=== PATIENT | male | born 1995 | race Caucasian/White ===

== ENCOUNTER 2017-01-21 01:27 | Emergency (ER) | payer OTHER ==
[~2017-01-21] VITALS: Ht 177.8 cm; Wt 99.5 kg
[2017-01-21 01:32] VITALS: Ht 177.8 cm; Wt 99.5 kg
--- NOTE | 2017-01-21 02:45 | ERD ---
ER Documentation Chief Complaint Date/Time DATE: 01/21/17 TIME: 02:42 Chief Complaint headache x 3 days HPI 21-year-old male presents to emergency department for complaints of headache for the last 3 days, patient states that his concentration is different than normal. Patient denies any head injury. Patient denies any numbness or tingling. Patient denies any dizziness. Patient denies any fever or chills. Patient did not take any medications to help with headache. Patient describes the headache as throbbing pain, 6/10 scale, intermittent. ROS All systems reviewed and are negative except as per history of present illness. Medications Home Meds Reported Medications [none] Unknown Strength No Conflict Check 01/21/17 Allergies Allergies: Coded Allergies: No Known Drug Allergies (Verified Allergy, Mild, 09/27/15) PMhx/Soc History of Surgery: No Anesthesia Reaction: No Hx Neurological Disorder: No Hx Respiratory Disorders: No Hx Cardiac Disorders: Yes (HTN (2014)) Hx Psychiatric Problems: No Hx Miscellaneous Medical Probl: No Hx Alcohol Use: No Hx Substance Use: No Hx Tobacco Use: No Smoking Status: Never smoker FmHx Family History: No coronary disease, No diabetes, No other Physical Exam Vitals Vital Signs Date Time Temp Pulse Resp B/P Pulse Ox O2 Delivery O2 Flow Rate FiO2 01/21/17 01:32 97.8 79 20 135/83 97 Physical Exam GENERAL: The patient is well developed and appropriate for usual state of health, in no apparent distress. CHEST: Clear to auscultation bilaterally. There are no rales, wheezes or rhonchi. HEART: Regular rate and rhythm. No murmurs, clicks, rubs or gallops. No S3 or S4. ABDOMEN: Soft, nontender and nondistended. Good bowel sounds. No rebound or guarding. No gross peritonitis. No gross organomegaly or masses. No Sharma sign or McBurney point tenderness. BACK: No midline or flank tenderness. EXTREMITIES: Equal pulses bilaterally. There is no peripheral clubbing, cyanosis or edema. No focal swelling or erythema. Full range of motion. Grossly neurovascularly intact. NEURO: Alert and oriented. Cranial nerves 2-12 intact. Motor strength in all 4 extremities with 5/5 strength. Sensation grossly intact. Normal speech and gait. Negative Romberg sign. Negative pronator drift. SKIN: There is no apparent rash or petechia. The skin is warm and dry. HEMATOLOGIC AND LYMPHATIC: There is no evidence of excessive bruising or lymphedema. No gross cervical, axillary, or inguinal lymphadenopathy. Results 24 hrs PROCEDURE: CT Brain without contrast. CLINICAL INDICATION: Headache. TECHNIQUE: A CT of the brain was performed utilizing axial sections from the skull base through the vertex without contrast. Multiplanar re-formations were generated. Images were reviewed on a high-resolution PACS workstation. CTDIvol: 43.95 mGy. DLP: 720.23 mGy-cm. One or more of the following dose reduction techniques were used: - Automated exposure control. - Adjustment of the mA and/or kV according to patient size. - Use of iterative reconstruction technique. COMPARISON: None available FINDINGS: There is no cerebral volume loss. No hydrocephalus is seen. There is no mass effect. No acute intracranial hemorrhage is identified. There is no extra-axial collection. Rees-white matter differentiation is preserved. There are layering secretions in the left maxillary sinus. The visualized mastoid air cells are clear. The ossesous structures are unremarkable. There is scalp swelling along the high left parietal region. IMPRESSION: 1. No acute intracranial pathology. RPTAT: HTAR .Mayo Esposito MD, MD Date Time Electronically viewed and signed by .Mayo Esposito MD, MD on 01/21/2017 02:59 .R/ CC: GILL BUTLER [employer] MANAGER Procedures/MDM Medical Decision Making: Patient symptoms are consistent with migraine headache , possible tension headache. There is low suspicion for neurological emergencies at this time since patients neurologic exam is normal. Patient did not have any altered level consciousness, vomiting, changes in balance or memory and did not have any head injury. Patients CT scan of the head does not show any neurological emergencies at this time. Rx: Fioricet Dispostion: Home. Stable Departure Diagnosis: Primary Impression: Headache Headache type: unspecified Headache chronicity pattern: acute headache Intractability: not intractable Qualified Code: R51 - Acute nonintractable headache, unspecified headache type Condition: Stable Patient Instructions: Self-Care for Headaches GILL BUTLER NP Jan 21, 2017 02:45
--- NOTE | 2017-01-21 02:59 | RADRPT ---
PROCEDURE: CT Brain without contrast. CLINICAL INDICATION: Headache. TECHNIQUE: A CT of the brain was performed utilizing axial sections from the skull base through th e vertex without contrast. Multiplanar re-formations were generated. Images were reviewed on a high- resolution PACS workstation. CTDIvol: 43.95 mGy. DLP: 720.23 mGy-cm. One or more of the following dose reduction techniques were used: - Automated exposure control. - Adjustment of the mA and/or kV according to patient size. - Use of iterative reconstruction technique. COMPARISON: None available FINDINGS: There is no cerebral volume loss. No hydrocephalus is seen. There is no mass effect. No acute intrac ranial hemorrhage is identified. There is no extra-axial collection. Rees-white matter differentiati on is preserved. There are layering secretions in the left maxillary sinus. The visualized mastoid air cells are kristen r. The ossesous structures are unremarkable. There is scalp swelling along the high left parietal re gion. IMPRESSION: 1. No acute intracranial pathology. RPTAT: HTAR .Mayo Esposito MD, Date Time Electronically viewed and signed by .Mayo Esposito MD, on 01/21/2017 02:59 .R/
[2017-01-21] MEDS ORDERED: FIORICET PO (03:46)
== END 2017-01-21 04:01 | disposition home or self-care (01) ==
LOC: FTE 01:27
DX: R51 Headache (principal); I10 Essential (primary) hypertension
CPT/HCPCS: 70450; Z7502

== ENCOUNTER 2017-01-23 23:40 | Emergency (ER) | payer OTHER ==
[~2017-01-23] VITALS: Ht 172.7 cm; Wt 99.5 kg
[~2017-01-23 23:40] MED LIST: FIORICET PO
[2017-01-23 23:47] VITALS: Ht 172.7 cm; Wt 99.5 kg
--- NOTE | 2017-01-24 00:53 | ERD ---
ER Documentation Chief Complaint Date/Time DATE: 01/24/17 TIME: 00:50 Chief Complaint chest stabbing pain radiating to left arm and throat,hx HTN,on enalapril HPI Patient is a 21-year-old male who presents with gradual onset, constant, moderate, sharp substernal chest pain for 1-1/2 hours. He states that it is worse with deep inspiration. He denies radiation of pain. He denies shortness of breath, fever, vomiting, abdominal pain, back pain. He reports having a sore throat. He reports a mild cough. He states that he had a fever 2 days ago. He reports palpitations, which he describes as feeling like his heart is beating fast. He takes enalapril for hypertension. ROS All systems reviewed and are negative except as per history of present illness. Medications Home Meds Active Scripts Albuterol Sulfate* (Proair HFA*) 8.5 Gm Hfa.aer.ad, 2 PUFF INH Q4 for 7 Days, # 1 INHALER Prov:VANESSA AKINS MD 01/24/17 Ibuprofen* (Motrin*) 600 Mg Tab, 600 MG PO Q8H Y for PAIN, #20 TAB Prov:VANESSA AKINS MD 01/24/17 Acetamin/Butalbital/Caffeine* (Fioricet*) [id number] Tab, 1 TAB PO Q6H Y for SEVERE PAIN LEVEL 7-10, #30 TAB Prov:GILL BUTLER NP 01/21/17 Reported Medications Omeprazole* (Omeprazole*) 10 Mg Capsule.dr, 10 MG PO DAILY, #30 CAP 01/24/17 Acetaminophen* (Acetaminophen*) 500 MG Extra Strength Tablet, 500 MG PO Q4H Y for PAIN AND OR ELEVATED TEMP, TAB 01/24/17 Discontinued Reported Medications [none] Unknown Strength No Conflict Check 01/21/17 Allergies Allergies: Coded Allergies: No Known Drug Allergies (Unverified Allergy, Unknown, 01/24/17) PMhx/Soc Past medical history: Hypertension Past surgical history: None Social history: Drinks alcohol, denies tobacco or illicit drugs. Last alcohol was 2 weeks ago. History of Surgery: No Anesthesia Reaction: No Hx Neurological Disorder: No Hx Respiratory Disorders: No Hx Cardiac Disorders: Yes (HTN,tachycardia) Hx Psychiatric Problems: No Hx Miscellaneous Medical Probl: No Hx Alcohol Use: No Hx Substance Use: No Hx Tobacco Use: No (quit 4 months ago) Smoking Status: Former smoker FmHx Family History: No coronary disease, No diabetes Physical Exam Vitals Vital Signs Date Time Temp Pulse Resp B/P Pulse Ox O2 Delivery O2 Flow Rate FiO2 01/24/17 02:49 98.0 62 19 111/54 98 Room Air 01/24/17 01:00 65 142/74 01/24/17 00:49 67 19 149/69 100 Room Air 01/23/17 23:47 100.1 98 18 186/97 98 Physical Exam Const: Alert, no acute distress Head: Atraumatic Eyes: Normal Conjunctiva, no pallor, no icterus ENT: Normal External Ears, Nose and Mouth. His membranes moist, clear oropharynx, no erythema or exudate. Neck: Full range of motion. No JVD. Resp: Clear to auscultation bilaterally, no wheezes, no rales Cardio: Regular rate and rhythm, no murmurs. 2+ radial pulses without delay bilaterally. Abd: Soft, non tender, non distended. No rebound or guarding s Skin: No petechiae or rashes Back: No midline or flank tenderness Ext: No cyanosis, or edema Neur: Awake and alert, cranial nerves II through XII intact bilaterally, moves and feels 4 extremities appropriately. Psych: Normal Mood and Affect Results 24 hrs Current Medications Medications (Trade) Dose Ordered Sig/[place] PRN Reason Start Time Stop Time Status Last Admin Dose Admin Metoprolol Tartrate (Lopressor) 25 mg ONCE ONCE PO 01/24/17 01:00 01/24/17 01:15 DC Procedures/MDM EKG read by me: Time 0002, rate 90 Rhythm: Normal sinus [place]: Normal Intervals: Normal ST-T waves: no ischemic changes Ectopy: No Q-waves: No Impression: No evidence of ischemia or arrhythmia MDM: Patient is a 21-year-old male who presents with substernal chest discomfort that is worse with deep inspiration. He has a normal EKG in the setting of active pain and chest x-ray. He has no PE risk factors. His symptoms are not suggestive of coronary ischemia or aortic dissection. The patient presented with significantly elevated blood pressure, and has a history of hypertension. His blood pressure spontaneously normalized while in the ER. The patient has a low-grade fever and sore throat, which is suggestive of a viral illness. I suspect that his pain is due to bronchitis. I will prescribe him Motrin for pain and an albuterol inhaler. I have advised him on strict return precautions for any worsening symptoms, and need for close PMD follow-up. Departure Diagnosis: Primary Impression: Bronchitis Condition: Stable VANESSA AKINS MD Jan 24, 2017 00:53 VANESSA AKINS MD Jan 24, 2017 00:53
[2017-01-24] MEDS ORDERED: METOPROLOL 25 MG TAB PO ONE (01:00)
--- NOTE | 2017-01-24 02:12 | RADRPT ---
PROCEDURE: XR Chest. CLINICAL INDICATION: Chest pain TECHNIQUE: AP Portable chest. COMPARISON: 09/28/2015 FINDINGS: The cardiomediastinal silhouette is normal. The lungs are clear. The osseous structures are unrema rkable. IMPRESSION: No acute findings. RPTAT: HIKT .Adilson Cabello MD, MD Date Time Electronically viewed and signed by .Adilson Cabello MD, MD on 01/24/2017 02:11 .T/
[2017-01-24] MEDS ORDERED: OMEP10CA4 PO (02:26)
[2017-01-24] MEDS ORDERED: ACET-141 PO (02:26)
[2017-01-24] MEDS ORDERED: ALBU8.5H3 INH (02:40)
[2017-01-24] MEDS ORDERED: IBUP-1542 PO (02:40)
[2017-01-24 02:49] VITALS: BP 111/54; PULSE 62; RESP 19; TEMP 98
== END 2017-01-24 02:34 | disposition home or self-care (01) ==
LOC: E/R 23:40
DX: J40 Bronchitis, not specified as acute or chronic (principal); R40.2252 Coma scale, best verbal response, oriented, at arrival to emergency department; I10 Essential (primary) hypertension; R40.2142 Coma scale, eyes open, spontaneous, at arrival to emergency department; R40.2362 Coma scale, best motor response, obeys commands, at arrival to emergency department; Z87.891 Personal history of nicotine dependence
CPT/HCPCS: 71010; Z7502; 93005